=== PATIENT | female | born 1975 ===

== ENCOUNTER → 2018-05-28 20:28 | Outpatient (REF) | payer OTHER, SELFPAY ==
[2018-05-28 20:31] LABS: Bacteria Urine None Seen; RBC Urine None Seen (0-5/HPF); WBC Urine None Seen (0-5/HPF)
[2018-05-28 20:48] LABS: Add Manual Diff / Slide Review NO; Alanine Aminotransferase 20 IU/L (9-52); Albumin 4.2 g/dL (3.5-5.0); Albumin Globulin Ratio 1.4 (1.0-2.8); Alkaline Phosphatase 50 U/L (38-126); Aspartate Aminotransferase 22 IU/L (14-36); BUN Creatinine Ratio 21.4 (6-22); Basophils Percent Auto 0.9 % (0-2); Blood Urea Nitrogen 15 mg/dL (7-17); Calcium 9.3 mg/dL (8.4-10.2); Carbon Dioxide 30 mmol/L (22-32); Chloride 102 mmol/L (98-107); Cholesterol 214 mg/dL (140-199); Eosinophils Percent Auto 5.9 % (2-4); Estimated Glomerular Filt Rate > 60.0 mL/min (>60); Globulin 3.1 g/dL (1.7-4.1); Glucose 81 mg/dL (70-100); HDL Cholesterol 77 mg/dL (40-60); HEMOLYSIS < 15 (0-50); Hematocrit 41.8 % (36-46); Hemoglobin 13.9 g/dL (12.0-16.0); LDL Cholesterol Calculated 121 mg/dL (<100); Lymphocytes Percent Auto 24.1 % (25-40); Mean Corpuscular HGB Conc 33.2 % (30-36); Mean Corpuscular Volume 96.5 fL (80-100); Neutrophils Absolute Auto 2900 /uL (1500-7000); Neutrophils Percent Auto 59.1 % (50-75); Platelet Count 235 X10^3/uL (150-400); Potassium 4.2 mmol/L (3.4-5.1); Red Blood Cell Count 4.33 X10^6/uL (4.0-5.2); Red Cell Distribution Width 13.2 % (11.6-14.8); Sodium 141 mmol/L (137-145); Total Protein 7.3 g/dL (6.3-8.2); Triglycerides 82 mg/dL (35-150); White Blood Cell Count 4.9 X10^3/uL (4.5-11.0)
[2018-05-28 21:06] LABS: Free T4, Direct Thyroxine 1.02 ng/dL (0.78-2.19)
[2018-05-28 21:13] LABS: Appearance Urine UA CLEAR; Bilirubin Urine UA NEGATIVE (NEGATIVE); Color Urine UA YELLOW; Glucose Urine UA NEGATIVE (Negative); Ketones Urine UA NEGATIVE (NEGATIVE); Leukocyte Esterase Urine UA NEGATIVE (NEGATIVE); Nitrite Urine UA NEGATIVE (Negative); Occult Blood Urine UA NEGATIVE (Negative); Protein Urine UA NEGATIVE (Negative); Urobilinogen Urine UA 0.2 E.U./dL (0.2); pH Urine UA 6.5 (4.5-8.0)
[2018-05-28 21:20] LABS: Thyroid Stimulating Hormone 1.96 uIU/mL (0.47-4.68)
[2018-05-28 21:23] LABS: Ferritin 37.8 ng/mL (6.27-137)
[2018-05-28 21:26] LABS: Urine Comments Microscopic Normal
[2018-05-28 21:27] LABS: Culture Indicated Urine Cult Not Indicated
[2018-05-31 08:02] LABS: Progesterone 0.9 ng/mL
[2018-05-31 22:42] LABS: Estrogen 213.2 pg/mL
[2018-06-02 15:14] LABS: Testosterone Free 2.1 pg/mL (0.1-6.4); Testosterone Total 15 ng/dL (2-45)
== END ==
LOC: LAB 20:28
PROVIDERS: Visit Provider Physician Assistant
DX: Z00.01 Encounter for general adult medical examination with abnormal findings (principal); Z13.89 Encounter for screening for other disorder
CPT/HCPCS: 36415; 80053; 80061; 81001; 82672; 82728; 83001; 83002; 84144; 84402; 84403; 84439; 84443; 85025